=== PATIENT | male | born 1965 ===

== ENCOUNTER 2024-04-01 10:09 | Observation (INO) ==
[~2024-04-01 10:09] MED LIST: Metoclopramide 5 MG/ML VIAL (10 mg) IV PRN; NS 0.45% 1000 ml BAG 1,000 ML IV SCH; Naloxone 0.4 mg VIAL 0.4 mg/ml 1 ml VIAL IV PRN; Ondansetron 4 mg VIAL 2 MG/ML 2 ml VIAL IV PRN; fentaNYL 100 mcg/2 ml 50 MCG/ML VIAL IV PRN
[2024-04-01] MEDS ORDERED: Rocuronium 50 mg VIAL 10 mg/ml 5 ml VIAL (50 mg) ONE (10:47)
[2024-04-01] MEDS ORDERED: Propofol 10 MG/ML 20 ML BTL ONE (10:47)
[2024-04-01] MEDS ORDERED: Lidocaine 2% PF 5 ML VIAL ONE (10:47)
[2024-04-01] MEDS ORDERED: fentaNYL 100 mcg/2 ml 50 MCG/ML VIAL ONE (10:47)
[2024-04-01 10:55] LABS: Rapid COVID-19 Molecular Undetected (Undetected)
[2024-04-01] MEDS: Buffered Lidocaine 1% SYRIN 1 ml INTRADERM ONE (11:02)
[2024-04-01] MEDS: Scopolamine 1 mg/72hr PATCH TRANSDERM ONE (11:02)
[2024-04-01] MEDS ORDERED: Midazolam 2 mg/2 ml VIAL 1 mg/ml 2 ml VIAL (2 mg) ONE (11:19)
[2024-04-01] MEDS ORDERED: BELLADONNA/OPIUM Rectal SUPP 1 EACH SUPP PR ONE (13:05)
[2024-04-01] MEDS ORDERED: Ondansetron 4 mg VIAL 2 MG/ML 2 ml VIAL IV PRN (13:07)
[2024-04-01] MEDS ORDERED: Dexamethasone IV 4 MG/ML VIAL 1 ml VIAL ONE (13:48)
[2024-04-01] MEDS ORDERED: Ondansetron 4 mg VIAL 2 MG/ML 2 ml VIAL ONE (13:48)
[2024-04-01] MEDS ORDERED: Furosemide 20 mg/2 ml IV VIAL ONE (14:30)
[2024-04-01] MEDS ORDERED: Esmolol 10 MG/ML 10 ML (100 mg) IV ONE (16:05)
[2024-04-01] MEDS: Ampicillin ADVAN 2 GM in NS 0.9% 100 ML IVPB ONE (17:49)
[2024-04-01] MEDS: Gentamicin ADULT 500 MG in NS 0.9% 100 ml BAG 100 ML IVPB ONE (17:49)
[2024-04-01] MEDS: NS 0.9% 1000 ml BAG 1,000 ML IV SCH (18:04)
[2024-04-01] MEDS: Neomycin/Polym/Bacit TOP OINT 15 GM TOPICAL SCH (18:04)
[2024-04-01] MEDS: Magnesium Hydroxide LIQ 30 ML UDC PO SCH (21:03)
[2024-04-01] MEDS: Lactated Ringers 1000 ml BAG 1,000 ML IV SCH (21:04)
[2024-04-01] MEDS: Acetaminophen IV 1 GM/100ML 1,000 MG/100 ML BAG IV ONE (21:04)
[2024-04-02 06:07] LABS: ABS Basophils 0.1 10^3/uL (0.0-0.1); ABS Eosinophils 0.1 10^3/uL (0.0-0.5); ABS Lymphocytes 1.4 10^3/uL (1.0-4.8); ABS Monocytes 1.3 10^3/uL (0.0-1.1); ABS Neutrophils 11.5 10^3/uL (1.5-7.6); ABS Nucleated RBC 0.01 10^3/ul; Eosinophil % 0.5 %; Hematocrit 43.5 % (38-53); Mean Corpuscular Hemoglobin 30.1 pg (27-33); Mean Corpuscular Hgb Conc 34.4 g/dL (31-36); Mean Corpuscular Volume 87.4 fL (80-97); Mean Platelet Volume 8.4 fL (7.5-11.2); Platelet Count 249 10^3/uL (150-450); Red Blood Count 4.98 10^6/uL (4.06-5.63); White Blood Count 14.4 10^3/uL (3.6-10.2)
[2024-04-02 06:30] LABS: Calcium 8.8 mg/dL (8.6-10.3); Creatinine, Serum 0.78 mg/dL (0.67-1.17); Potassium 4.8 mmol/L (3.5-5.0)
== END 2024-04-02 10:30 | disposition home or self-care (01) ==
LOC: SSU 10:09 → OR 10:09
PROVIDERS: ADMIT Urology; ATTEND Urology